=== PATIENT | male | born 1935 | race Caucasian/White ===

== ENCOUNTER 2020-05-21 16:15 | Inpatient (IN) | payer MEDICARE ==
[~2020-05-21] VITALS: Ht 188 cm; Wt 96.9 kg
[2020-05-21 17:01] LABS: BASOPHILS ABSOLUTE AUTO 0.03 K/mm3 (0.00-0.23); BASOPHILS PERCENT AUTO 1 % (0-2); EOSINOPHILS ABSOLUTE AUTO 0.19 K/mm3 (0.00-0.68); EOSINOPHILS PERCENT AUTO 4 % (0-6); Hematocrit 43.7 % (37.0-53.0); Hemoglobin 14.3 g/dL (13.5-17.5); IMMATURE GRAN ABSOLUTE AUTO 0.01 K/mm3 (0.00-0.10); IMMATURE GRAN PERCENT AUTO 0 % (0-1); LYMPHOCYTES ABSOLUTE AUTO 1.23 K/mm3 (0.84-5.20); LYMPHOCYTES PERCENT AUTO 23 % (21-46); MONOCYTES PERCENT AUTO 9 % (4-13); Mean Corpuscular HGB 32.9 pg (26.0-34.0); Mean Corpuscular HGB Conc 32.7 g/dL (31.5-36.5); Mean Corpuscular Volume 101 fL (80-100); Mean Platelet Volume 9.7 fL (9.1-12.4); NEUTROPHILS ABSOLUTE AUTO 3.43 K/mm3 (1.96-9.15); NEUTROPHILS PERCENT AUTO 64 % (41-73); Platelet Count 184 K/mm3 (150-400); RDW Coefficient Variation 15.4 % (11.7-14.2); RDW Standard Deviation 57.7 fL (35.1-46.3); Red Blood Cell Count 4.34 M/mm3 (4.30-5.90); White Blood Cell Count 5.39 K/mm3 (4.00-11.30)
[2020-05-21] MEDS ORDERED: LISI20 PO (17:06)
[2020-05-21] MEDS ORDERED: ATOR80 PO (17:07)
[2020-05-21] MEDS ORDERED: Aspir 8181 MG PO (17:07)
[2020-05-21 17:17] LABS: Alanine Aminotransfer (ALT/SGP 47 U/L (12-78); Albumin, Blood 3.8 g/dL (3.4-5.0); Alk Phos 129 U/L (50-136); Anion Gap 2 mmol/L (6-16); Aspartate Aminotrans (AST/SGOT 28 U/L (12-37); Bilirubin, Total 0.3 mg/dL (0.1-1.0); Blood Urea Nitrogen 28 mg/dL (8-24); Bun/Creatinine Ratio 29.7 (12.0-20.0); CO2, Blood 30 mmol/L (21-32); Calcium, Blood 10.5 mg/dL (8.5-10.1); Chloride, Blood 113 mmol/L (98-108); Creatinine, Blood 0.94 mg/dL (0.60-1.20); Glomerular Filtration Rate >60 (60-); Glucose, Blood 101 mg/dL (70-99); Potassium, Blood 4.8 mmol/L (3.5-5.5); Sodium, Blood 145 mmol/L (136-145); Total Protein, Blood 7.8 g/dL (6.4-8.2)
[2020-05-21 17:18] LABS: International Normalized Ratio 0.94; Prothrombin Time Results 10.1 Sec (9.7-11.5)
[2020-05-22 01:25] LABS: BASOPHILS ABSOLUTE AUTO 0.03 K/mm3 (0.00-0.23); BASOPHILS PERCENT AUTO 1 % (0-2); EOSINOPHILS ABSOLUTE AUTO 0.17 K/mm3 (0.00-0.68); EOSINOPHILS PERCENT AUTO 4 % (0-6); Hematocrit 39.5 % (37.0-53.0); Hemoglobin 12.9 g/dL (13.5-17.5); IMMATURE GRAN ABSOLUTE AUTO 0.01 K/mm3 (0.00-0.10); IMMATURE GRAN PERCENT AUTO 0 % (0-1); LYMPHOCYTES ABSOLUTE AUTO 0.89 K/mm3 (0.84-5.20); LYMPHOCYTES PERCENT AUTO 20 % (21-46); MONOCYTES ABSOLUTE AUTO 0.45 K/mm3 (0.16-1.47); MONOCYTES PERCENT AUTO 10 % (4-13); Mean Corpuscular HGB 32.7 pg (26.0-34.0); Mean Corpuscular HGB Conc 32.7 g/dL (31.5-36.5); Mean Corpuscular Volume 100 fL (80-100); Mean Platelet Volume 9.4 fL (9.1-12.4); NEUTROPHILS ABSOLUTE AUTO 3.01 K/mm3 (1.96-9.15); NEUTROPHILS PERCENT AUTO 66 % (41-73); Platelet Count 158 K/mm3 (150-400); RDW Coefficient Variation 15.5 % (11.7-14.2); RDW Standard Deviation 57.3 fL (35.1-46.3); Red Blood Cell Count 3.95 M/mm3 (4.30-5.90); White Blood Cell Count 4.56 K/mm3 (4.00-11.30)
[2020-05-22 01:43] LABS: Alanine Aminotransfer (ALT/SGP 37 U/L (12-78); Albumin, Blood 3.1 g/dL (3.4-5.0); Albumin/Globulin Ratio 0.9 (0.8-1.8); Alk Phos 106 U/L (50-136); Anion Gap 2 mmol/L (6-16); Aspartate Aminotrans (AST/SGOT 21 U/L (12-37); Bilirubin, Total 0.2 mg/dL (0.1-1.0); Blood Urea Nitrogen 30 mg/dL (8-24); Bun/Creatinine Ratio 31.1 (12.0-20.0); CO2, Blood 28 mmol/L (21-32); Calcium, Blood 9.6 mg/dL (8.5-10.1); Chloride, Blood 114 mmol/L (98-108); Creatinine, Blood 0.97 mg/dL (0.60-1.20); Globulin, Blood 3.4 g/dL (2.2-4.0); Glomerular Filtration Rate >60 (60-); Glucose, Blood 131 mg/dL (70-99); Potassium, Blood 4.2 mmol/L (3.5-5.5); Sodium, Blood 144 mmol/L (136-145); Total Protein, Blood 6.5 g/dL (6.4-8.2)
[2020-05-22 01:44] LABS: Troponin I 0.062 ng/mL (0.000-0.040)
[2020-05-22 02:51] LABS: Source, Urine Clean Catch
[2020-05-22 02:53] LABS: Appearance, Urine Hazy (Clear); Bilirubin, Urine Neg (Neg); Blood, Urine 1+ (Neg); Color, Urine Yellow (P-Yellow); Glucose Qualitative, Urine Neg (Neg); Ketones, Urine Neg (Neg); Leukocyte Esterase, Urine 3+ (Neg); Nitrite, Urine Pos (Neg); Protein, Urine 2+ (Neg); Urobilinogen, Urine NORM (Normal)
[2020-05-22 02:59] LABS: Bacteria Many /hpf; Calcium Oxalate Crystals Few /hpf; Red Blood Cells, Urine 0-2 /hpf (0-2); Squamous Epithelial Cells Not Seen /hpf (Few); White Blood Cells, Urine TNTC /hpf (0-5)
--- NOTE | 2020-05-22 03:31 | NUR ---
CALL TO HOSPITALIST- PT BP 196/66. ASYMPTOMATIC. NOTIFIED DR. ADAMS. NEW ORDER FOR LISINOPRIL 40MG 1ST DOSE NOW.
--- NOTE | 2020-05-22 05:17 | NUR ---
SHIFT SUMMARY: PT ADMINITTED TO MEDICAL FLOOR FROM [facility]. SBP ELEVATED. AFIB W/ RATES BETWEEN 40'S TO 60'S PER TELE SPRAGGER. DENIES ANY NUMBNESS AND DENIES VISION CHANGES. NEURO CHECKS WNL. NO C/O CHEST PAIN OR SOB. PVR 0MLS. TROPONIN LEVEL DECREASED ON SECOND CHECK. WILL CONT TO MONITOR.
[2020-05-22 10:05] LABS: Troponin I 0.058 ng/mL (0.000-0.040)
[2020-05-22] MEDS ORDERED: LIDOCAINE HCL30 ML (11:29)
[2020-05-22] MEDS ORDERED: Doxycycline Mo100 M1 PO (11:30)
[2020-05-22] MEDS ORDERED: HYDROCODONE-AC1 EAC5 PO (11:31)
[2020-05-22] MEDS ORDERED: NITR.4SL SL (11:32)
[2020-05-22] MEDS ORDERED: POTA10T PO (11:32)
[2020-05-22] MEDS ORDERED: FURO40 PO (11:32)
[2020-05-22] MEDS ORDERED: CYCL10 PO (11:33)
[2020-05-22] MEDS ORDERED: OXYC10TA19 PO (11:33)
--- NOTE | 2020-05-22 14:05 | NUR ---
echocardiogram complete
[2020-05-22] MEDS ORDERED: FISH OIL PO (14:10)
[2020-05-22] MEDS ORDERED: AREDS PO (14:11)
[2020-05-22] MEDS ORDERED: [UNRECOGNIZED DRUG - OTHER] PO (14:12)
[2020-05-22] MEDS ORDERED: ERGO400 PO (14:14)
[2020-05-22] MEDS ORDERED: MAGNESIUM OXID500 MG PO (14:14)
[2020-05-22] MEDS ORDERED: Selenomax200 MCG PO (14:15)
--- NOTE | 2020-05-22 16:19 | NUR ---
PT BLOOD PRESSURE CONT TO BE ELEVATED AT 176/87 THIS AFTERNOON. PT DID RECEIVE PRN HYDRALAZINE THIS AM AND ANOTHER DOSE THIS AFTERNOON. DR OMNTGOMERY NOTIFIED AND ORDERS FOR NORVAS PLACED. PT ALSO REPORTS NOT SLEEPING WELL, STATES HE REALLY NEVER SLEEPS WELL DUE TO PAIN, DR MONTGOMERY ORDERED PRN MELATONIN. U/S TECH CALLED EARLIER REGARDING CAROTID U/S, DR MONTGOMERY NOTIFIED AND REVIEWED DICTATION.
--- NOTE | 2020-05-22 16:31 | NUR ---
SHIFT SUMMARY- PT A/OX4. PT DENIES ANY COMPLAINTS T/O THE DAY. LS CLEAR, ON RA. TELE AFIB 40-60'S, PT REMAINS HYPERTENSIVE T/O THE DAY. ID HYDRALAZINE GIVEN AND NORVASC ADDED. U/S COMPLETED OF SWOLLEN TESTICLE. POST VOID BLADDER SCAN COMPLETED WITH ONLY 35ML PRESENT. PT HOPEFUL TO DISCHARGE HOME TOMORROW. PT REPORTS NOT SLEEPING WELL AND PRN MELATONIN ORDERED FOR THIS EVENING. NO OTHER ACUTE CHANGES THIS SHIFT.
--- NOTE | 2020-05-22 17:07 | NUR ---
CAST SHELL GRINDER CALLED AND REPORTED PT HR NOTED TO BE DROPPING IN THE LOW 40'S, WHEN WENT TO ASSESS PT PT NOTED TO BE ASLEEP. HR REMAINS 40-50'S. DR MONTGOMERY AWARE OF AFIB WITH SLOW RATE. PT REPORTS THIS IS NORMAL FOR HIM AND HAS GOTTEN LOW 29 IN THE PAST. PT REPORTS HE SEES A CAPTAIN CANNERY TENDER AND THEY HAVE SPOKE ABOUT A PACEMAKER BUT FELT THOUGH HE HAS BEEN THIS WAY ([place]) HIS WHOLE LIFE. PT REPORTS HE IS ALMOST 85 AND UNDERSTANDS HE WILL NOT LIVE FOREVER. I SPOKE TO PT ABOUT CODE STATUS AND HE DOES WANT TO BE A FULL CODE BUT DOES NOT WANT TO BE PUT ON NURSING HOME LIFE SUPPORT.
--- NOTE | 2020-05-23 04:39 | NUR ---
7 BEAT RUN OF V-TACH AT 0053. ASYMPTOMATIC. NOTIFIED HOSPITALIST, DR. ADAMS. RECIEVED INSTRUCTIONS TO CONT TO MONITOR PT.
--- NOTE | 2020-05-23 04:47 | NUR ---
SHIFT SUMMARY: AAOX4. SBP 157 AND 143 TONIGHT. AFIB W/PULSE 40-60'S PER TELE HAIR AND MAKEUP DESIGNER. PT ASYMPTOMATIC. DENIES VISION DISTURBANCES AND N/T. AFEB. MELATONIN GIVEN FOR INSOMNIA. PT APPEARS TO HAVE SLEPT THROUGH MOST OF THE NIGHT. WILL CONT TO MONITOR.
[2020-05-23 09:05] LABS: Anion Gap 4 mmol/L (6-16); Blood Urea Nitrogen 19 mg/dL (8-24); Bun/Creatinine Ratio 25.2 (12.0-20.0); CO2, Blood 26 mmol/L (21-32); Calcium, Blood 9.5 mg/dL (8.5-10.1); Chloride, Blood 111 mmol/L (98-108); Creatinine, Blood 0.75 mg/dL (0.60-1.20); Glomerular Filtration Rate >60 (60-); Glucose, Blood 145 mg/dL (70-99); Potassium, Blood 4.2 mmol/L (3.5-5.5); Sodium, Blood 141 mmol/L (136-145)
[2020-05-23] MEDS ORDERED: Preservision A1 EACH PO (11:44)
[2020-05-23] MEDS ORDERED: TAMS.4ER PO (11:50)
[2020-05-23] MEDS ORDERED: AMLO5 PO (12:23)
[2020-05-23] MEDS ORDERED: XARELTO20 MG PO (12:23)
--- NOTE | 2020-05-23 15:06 | NUR ---
PT DISCHARGED PT VERBALIZED UNDERSTANDING OF THE DC INSTRUCTIONS, PTS PRESCRIPTIONS WERE FAXED TO [facility] IN [place]. PT APPEARED TO BE BREATHING EASILY AT THE TIME OF DC, PT WAS REMINDED TO CALL TO SCHEDULE FOLLOW UP APPOINTMENTS WITH HIS PCP, GRAVITY PROSPECTING SUPERVISOR, AND UROLOGIST, THE PT WAS TRANSFERED VIA WHEELCHAIR ACCOMPANIED BY THE OWNER CONSULTING ENGINEER AND HIS SO
== END 2020-05-23 13:00 | disposition home or self-care (01) | DRG 69 ==
LOC: ER 16:15 → MEDS 16:16
PROVIDERS: Hospitalist; Physician Assistant; ADMIT Internal Medicine
DX: G45.9 Transient cerebral ischemic attack, unspecified (principal); N30.00 Acute cystitis without hematuria; I65.22 Occlusion and stenosis of left carotid artery; I10 Essential (primary) hypertension; I35.1 Nonrheumatic aortic (valve) insufficiency; I48.91 Unspecified atrial fibrillation; I16.0 Hypertensive urgency; N40.0 Benign prostatic hyperplasia without lower urinary tract symptoms; N50.89 Other specified disorders of the male genital organs; Z95.1 Presence of aortocoronary bypass graft; I25.10 Atherosclerotic heart disease of native coronary artery without angina pectoris; R20.0 Anesthesia of skin; Z79.82 Long term (current) use of aspirin; I25.2 Old myocardial infarction
CPT/HCPCS: 36415; 70450; 76870; 80048; 80053; 81001; 82550; 82947; 84484; 85025; 85610; 87077; 87086; 87186; 93005; 93010; 93306; 93880; 96374; 99285-25; A9270-GY; G0378; J0696; J7030